=== PATIENT | female | born 1970 ===

== ENCOUNTER 2019-03-17 15:25 | Outpatient (CLI) | payer SELFPAY | END 2019-03-17 15:26 | disposition short-term general hospital (02) | LOC: EMS 15:25 | PROVIDERS: ATTEND Surgery | DX: M25.571 Pain in right ankle and joints of right foot (principal); R26.2 Difficulty in walking, not elsewhere classified; X50.9XXA Other and unspecified overexertion or strenuous movements or postures, initial encounter | CPT/HCPCS: A0425; A0429 ==